=== PATIENT | male | born 1995 | race Caucasian/White ===

== ENCOUNTER 2017-03-05 02:25 | Emergency (ER) | payer BC, OTHER ==
[~2017-03-05] VITALS: Ht 172.7 cm; Wt 81.6 kg
--- OUTSIDE RECORDS SUMMARY | 2017-03-05 02:31 | XMS REPORT | Continuity of Care Document ---
Author Author [facility] Address Unknown Phone Unavailable Allergies There is no data. Medications There is no data. Problems There is no data. Procedures There is no data. Results There is no data. Encounters ACCT No. Visit Date/Time Discharge Status Pt. Type Provider Facility Loc./Unit Complaint [id number] 10/27/2012 00:00:00 10/27/2012 23:59:59 CLS Outpatient KRYSTAL OROURKE, [place]
[2017-03-05] MEDS ORDERED: NS IV 1000 ML 1,000 ML IV ONE (02:35)
[2017-03-05] MEDS ORDERED: ONDANSETRON 4 MG/2 ML (SDV) Z0FRAN IVP ONE (02:45)
[2017-03-05] MEDS ORDERED: LIDOCAINE 1% INJ 20 ML (XYLOCAINE) VIAL INJ ONE (02:45)
[2017-03-05] MEDS ORDERED: TETANUS,DIPTH,PERTUSS P/F (BOOSTRIX) 0.5 ML VIAL IM ONE (02:45)
[2017-03-05 02:56] LABS: MEAN PLATELET VOLUME 10.7 FL (7.4-10.4); RED BLOOD COUNT 5.11 10^6/uL (4.35-5.85); RED CELL DISTRIBUTION WIDTH 13.2 % (10.0-14.5); WHITE BLOOD COUNT 7.3 10^3/uL (4.3-11.0)
[2017-03-05 03:14] LABS: ALANINE AMINOTRANSFERASE 15 U/L (0-55); ALBUMIN 4.8 GM/DL (3.2-4.5); ALCOHOL 184 MG/DL (<10); ANION GAP 14 MMOL/L (5-14); ASPARTATE AMINO TRANSFERASE 18 U/L (5-34); BILIRUBIN,DIRECT 0.2 MG/DL (0.0-0.3); BILIRUBIN,INDIRECT 0.3 MG/DL; BILIRUBIN,TOTAL 0.5 MG/DL (0.1-1.0); BLOOD UREA NITROGEN 12 MG/DL (7-18); BUN/CREATININE RATIO 13; CALCIUM 9.2 MG/DL (8.5-10.1); CARBON DIOXIDE 21 MMOL/L (21-32); CHLORIDE 110 MMOL/L (98-107); CREATININE SERUM 0.93 MG/DL (0.60-1.30); GFR ESTIMATED > 60; GLUCOSE 101 MG/DL (70-105); POTASSIUM 4.1 MMOL/L (3.6-5.0); SODIUM 145 MMOL/L (135-145); TOTAL PROTEIN 7.7 GM/DL (6.4-8.2)
[2017-03-05] MEDS ORDERED: PROMETHAZINE INJ 25 MG/ML (PHENERGAN) AMP ONE (04:09)
[2017-03-05] MEDS ORDERED: CLINDAMYCIN INJECTION 900 MG in NS (IVPB) 50 ML IV ONE (04:15)
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
[2017-03-05] MEDS ORDERED: SULF1TAB35 PO ×2 (04:55→05:40)
[2017-03-05 06:00] VITALS: BP 138/88
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
== END 2017-03-05 06:15 | disposition home or self-care (01) ==
LOC: ER 02:28
DX: S01.81XA Laceration without foreign body of other part of head, initial encounter (principal); S01.311A Laceration without foreign body of right ear, initial encounter; F10.129 Alcohol abuse with intoxication, unspecified; Z23 Encounter for immunization; Y09 Assault by unspecified means; Y92.511 Restaurant or cafe as the place of occurrence of the external cause
CPT/HCPCS: 12031; 36415; 70450; 70486; 72125; 80048; 80076; 80306; 80320; 85027; 90715